=== PATIENT | male | born 1980 | race Caucasian/White ===

== ENCOUNTER 2016-07-25 12:49 | Emergency (ER) | payer OTHER ==
[~2016-07-25] VITALS: Ht 172.7 cm; Wt 94.9 kg
[2016-07-25 12:59] VITALS: TEMP 36.6; Ht 172.7 cm; Wt 94.9 kg
[2016-07-25] MEDS ORDERED: EFF75 PO (13:23)
[2016-07-25] MEDS ORDERED: BUSP15TA70 PO (13:23)
[2016-07-25] MEDS ORDERED: MIRT15TA2 PO (13:23)
[2016-07-25] MEDS ORDERED: HYDROCODONE/ACETAMINOPHEN 7.5/325MG TAB PO STA (13:33)
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
[2016-07-25 14:55] VITALS: BP 135/86; PULSE 100; O2SAT 97
== END 2016-07-25 14:58 | disposition home or self-care (01) ==
LOC: C.EDA 12:51
DX: S09.90XA Unspecified injury of head, initial encounter (principal); S02.2XXA Fracture of nasal bones, initial encounter for closed fracture; Y04.0XXA Assault by unarmed brawl or fight, initial encounter; Y92.149 Unspecified place in prison as the place of occurrence of the external cause; F17.200 Nicotine dependence, unspecified, uncomplicated